=== PATIENT | female | born 1990 | race Caucasian/White ===

== ENCOUNTER 2016-04-26 10:21 | Day surgery (SDC) | payer MEDICAID ==
[~2016-04-26 10:21] MED LIST: PROPOFOL INJ 200 MG/20 ML VIAL IV ONE
[2016-04-26 12:52] VITALS: BP 94/47
--- NOTE | 2016-04-26 13:09 | Operative Report ---
Operative Report DATE OF SURGERY: 04/26/16 Operative Report: The risks, benefits and alternatives of the procedure including risks of bleeding, perforation requiring surgery I explained to the patient detail and informed consent is obtained. Patient is placed in the left lateral decubital position. Timeout is called. Propofol medications administered. A rectal examination was done which did not reveal any masses, tears or fissures. An Olympus endoscope was inserted into the patient's rectum. Scope was then gradually advanced all the way to the cecum. The cecum was identified by the usual anatomical landmarks including the ileocecal valve as well as the appendiceal office. Photodocumentation is obtained. The prep is good. Scope was then sequentially pulled back creative rest segments of the colon including the ascending colon, hepatic flexure, transverse colon, splenic flexure descending colon and finally into the rectosigmoid portions of the colon. Retroflexion maneuvers performed. The risks benefits and alternatives of the procedure explained to the patient in detail and informed consent is obtained that GIF Olympus video scope was inserted into the patient's mouth and hypopharynx the esophagus is identified intubated and insufflated the scope was then advanced through the esophagus stomach and duodenum retroflexion maneuver is done the esophagus stomach and first and second portions of the duodenum examined PREOPERATIVE DIAGNOSIS: Weight loss, change of bowel habits POSTOPERATIVE DIAGNOSIS: Mild terminal ileitis. Random biopsies obtained on the right side of the colon to rule out microscopic, collagenous, lymphocytic colitis. Mild duodenitis. Gastritis OPERATION: Colonoscopy with biopsy. EGD with biopsy SURGEON: ARMANDO FARNSWORTH ANESTHESIA: LMAC TISSUE REMOVED OR ALTERED: Small intestinal specimens obtained rule out celiac disease. Gastric mucosal specimens obtained rule out Helicobacter pylori. Terminal ileum specimens obtained rule out Crohn's disease. Right-sided mucosal colon biopsies obtained rule out lymphocytic, microscopic, collagenous colitis COMPLICATIONS: None. ESTIMATED BLOOD LOSS: none. INTRAOPERATIVE FINDINGS: As described above. No masses, AVMs, diverticulosis noted. No gastric or duodenal ulcers noted. Patent esophagus PROCEDURE: Patient tolerated the procedure well. No immediate postprocedure complications are noted. Patient is discharged in good condition. Discharge date 04/26/2016. Discharge diet: Regular. Discharge activity: Regular. 2-3 week follow-up to discuss findings We'll await biopsies Patient is instructed to call the office or proceed to the emergency room should there be any further problems or questions.
== END 2016-04-26 12:45 | disposition home or self-care (01) ==
LOC: END 10:21
PROVIDERS: ATTEND Internal Medicine Gastroenterology
PROC: 0DBB8ZX Excision of Ileum, Via Natural or Artificial Opening Endoscopic, Diagnostic (ICD-10-PCS; 2016-04-26)
PROC: 0DBF8ZX Excision of Right Large Intestine, Via Natural or Artificial Opening Endoscopic, Diagnostic (ICD-10-PCS; 2016-04-26)
PROC: 0DB98ZX Excision of Duodenum, Via Natural or Artificial Opening Endoscopic, Diagnostic (ICD-10-PCS; principal; 2016-04-26 13:30)
PROC: 0DB68ZX Excision of Stomach, Via Natural or Artificial Opening Endoscopic, Diagnostic (ICD-10-PCS; 2016-04-26 13:30)
DX: K52.9 Noninfective gastroenteritis and colitis, unspecified (principal); R63.4 Abnormal weight loss; Z68.22 Body mass index [BMI] 22.0-22.9, adult; K29.50 Unspecified chronic gastritis without bleeding; K29.80 Duodenitis without bleeding; E16.1 Other hypoglycemia; F72 Severe intellectual disabilities; E03.9 Hypothyroidism, unspecified; H91.90 Unspecified hearing loss, unspecified ear; Q90.9 Down syndrome, unspecified; Z79.82 Long term (current) use of aspirin
CPT/HCPCS: 43239; 45380; 88305 ×2; J2704; 740